=== PATIENT | female | born 1985 | race African-American/Black ===

== ENCOUNTER 2019-05-19 11:00 | Observation (INO) ==
[2019-05-19] MEDS ORDERED: KETOROLAC 30 MG/1 ML VIAL IV STA (12:32)
[2019-05-19 12:42] LABS: Basophils # 0.1 10*3/uL (0.0-0.2); Basophils % 0.3 % (0.0-0.8); Eosinophils # 0.1 10*3/uL (0.0-0.87); Eosinophils % 0.3 % (0.00-10.9); Immature Granulocytes % 1.9 %; Immature Granulocytes Absolute 0.48 #; Lymphocytes # 2.3 10*3/uL (1.4-4.0); Lymphocytes % 9.3 % (21.3-54.2); Mean Corpuscular HGB Conc 33.3 GM/DL (32-36); Mean Corpuscular Volume 90.4 FL (87-102); Mean Platelet Volume 9.9 FL (9.6-12.0); Monocytes % 6.4 % (1.7-12.7); Neutrophils % 81.8 % (38.7-73.9); Platelet Count 293 T/CUMM (130-400); Red Blood Count 3.32 MC/CUMM (3.8-5.5); Red Cell Distribution Width 12.8 % (9.3-17.3); White Blood Count 24.9 T/CUMM (4-12)
[2019-05-19 13:02] LABS: Calcium 8.4 MG/DL (8.5-10.1); Osmolality,Calculated 266.2 MOS/KG (273-304)
[2019-05-19 13:05] LABS: Platelet Estimate Normal
[2019-05-19 13:06] LABS: Ovalocytes Few
[2019-05-19 13:07] LABS: Anisocytosis Slight; Hypochromasia 1+; Microcytosis 1+
[2019-05-19 13:15] LABS: Amorphous Crystals,Urine Occasional /HPF (Few); Apearance,Urine CLOUDY (Clear); Bilirubin,Urine Negative (Negative); Blood, Urine Large mg/dL (Negative); Glucose,Urine (UA) Negative (Negative); Ketones,Urine 5 mg/dL (Negative); Mucus,Urine Few /LPF (Occasional); Nitrite,Urine Negative (Negative); Protein,Urine 100 MG/DL; RBC,Urine 58 /HPF (0-4); Urine Color Yellow (Yellow); Urine Specific Gravity 1.032 (1.001-1.035); Urine Urobilinogen < 2.0 EU/DL (0.2-1.0)
[2019-05-19 13:31] LABS: Lymphocytes 9 % (20-55); Segmented Neutrophils 86 % (50-85); Total Cells Counted 100
[2019-05-19] MEDS ORDERED: PIPERACILLIN/TAZOBACTAM 3,375 MG in SODIUM CHLORIDE 0.9% 100 ML IV STA (13:54)
[2019-05-19] MEDS ORDERED: OXYTOCIN/LR 20 UNIT/1,000 ML BAG IV ONE (14:00)
[2019-05-19] MEDS ORDERED: MAGNESIUM HYDROXIDE SUSP 30 ML UDCUP PO PRN ×2 (14:04→18:53)
[2019-05-19] MEDS ORDERED: ACETAMINOPHEN 325 MG TABLET PO PRN (14:04)
[2019-05-19] MEDS ORDERED: ONDANSETRON 4 MG/2 ML VIAL IV PRN ×2 (14:04→18:53)
[2019-05-19] MEDS ORDERED: IBUPROFEN 800 MG TABLET PO PRN ×2 (14:04→18:53)
[2019-05-19] MEDS ORDERED: INFLUENZA VIRUS VACCINE 0.5 ML SYRINGE IM ONE (15:39)
[2019-05-19] MEDS ORDERED: BENZOCAINE/MENTHOL LOZENGE 18/BOX PO PRN (18:53)
[2019-05-19] MEDS ORDERED: BISACODYL 10 MG SUPP RECTAL PRN (18:53)
[2019-05-19] MEDS ORDERED: DOCUSATE SODIUM 100 MG CAPSULE PO PRN (18:53)
[2019-05-19] MEDS ORDERED: LACTATED RINGERS 1,000 ML IV SCH (19:00)
[2019-05-19] MEDS ORDERED: LIDOCAINE 2% 5 ML VIAL ONE (19:00)
[2019-05-19] MEDS ORDERED: SEVOFLURANE 1 UNIT/15 MINUTE INH ONE (19:00)
[2019-05-19] MEDS ORDERED: propofoL 200 MG/20 ML VIAL IV ONE (19:00)
[2019-05-19] MEDS ORDERED: PHENYLEPHRINE 1 MG/10 ML SYRINGE IV ONE (19:01)
[2019-05-19] MEDS ORDERED: ONDANSETRON 4 MG/2 ML VIAL ONE (19:01)
[2019-05-19] MEDS ORDERED: SODIUM CHLORIDE 0.9% 100 ML IV ONE (19:01)
[2019-05-19] MEDS ORDERED: fentaNYL 100 MCG/2 ML VIAL ONE (19:01)
[2019-05-19] MEDS ORDERED: PHENYLEPHRINE 10 MG/1 ML VIAL IV ONE (19:01)
[2019-05-19] MEDS ORDERED: MIDAZOLAM 2 MG/2 ML VIAL ONE (19:01)
[2019-05-19] MEDS ORDERED: KETOROLAC 30 MG/1 ML VIAL ONE (19:01)
[2019-05-19] MEDS ORDERED: DEXAMETHASONE 4 MG/1 ML VIAL ONE (19:01)
[2019-05-19] MEDS: oxyCODONE/ACETAMINOPHEN 5-325 MG TABLET PO PRN (20:34)
[2019-05-19] MEDS: ACETAMINOPHEN 325 MG TABLET PO PRN (20:34)
[2019-05-19] MEDS ORDERED: ceFAZolin 1,000 MG in SYRINGE 1 EACH IV SCH (23:00)
[2019-05-20] MEDS ORDERED: IBUPROFEN 800 MG TABLET PO PRN
[2019-05-20] MEDS: ceFAZolin 1,000 MG in SYRINGE 1 EACH IV SCH ×5 (00:06→23:34)
[2019-05-20] MEDS: oxyCODONE/ACETAMINOPHEN 5-325 MG TABLET PO PRN ×3 (00:36→14:39)
[2019-05-20] MEDS: ACETAMINOPHEN 325 MG TABLET PO PRN ×2 (00:36→04:40)
[2019-05-20] MEDS ORDERED: ceFAZolin 1,000 MG in SYRINGE 1 EACH IV SCH (00:53)
[2019-05-20] MEDS ORDERED: diphenhydrAMINE CAP 25 MG CAPSULE PO PRN (03:45)
[2019-05-20 05:01] LABS: Basophils # 0.1 10*3/uL (0.0-0.2); Basophils % 0.3 % (0.0-0.8); Hematocrit 26.1 VOL% (35.7-47.0); Hemoglobin 8.8 GM/DL (12.0-16.0); Immature Granulocytes % 2.6 %; Immature Granulocytes Absolute 0.61 #; Lymphocytes # 2.3 10*3/uL (1.4-4.0); Lymphocytes % 9.8 % (21.3-54.2); Mean Corpuscular HGB Conc 33.7 GM/DL (32-36); Mean Platelet Volume 9.9 FL (9.6-12.0); Monocytes % 2.4 % (1.7-12.7); Neutrophils % 84.9 % (38.7-73.9); Platelet Count 281 T/CUMM (130-400); Red Cell Distribution Width 12.6 % (9.3-17.3); White Blood Count 23.3 T/CUMM (4-12)
[2019-05-20 05:30] LABS: Band Neutrophils 4 % (0-10); Hypochromasia 1+; Lymphocytes 8 % (20-55); Microcytosis Slight; Myelocytes 1 %; Ovalocytes Slight; Segmented Neutrophils 83 % (50-85); Total Cells Counted 100
[2019-05-20 05:31] LABS: Platelet Estimate Normal; Polychromasia Slight
[2019-05-20] MEDS: FERROUS SULFATE 325 MG TABLET PO SCH (08:26)
[2019-05-20] MEDS ORDERED: ACETAMINOPHEN 500 MG TABLET PO PRN (20:06)
[2019-05-21 05:55] LABS: Basophils # 0.1 10*3/uL (0.0-0.2); Basophils % 0.5 % (0.0-0.8); Eosinophils # 0.2 10*3/uL (0.0-0.87); Eosinophils % 1.1 % (0.00-10.9); Hematocrit 24.3 VOL% (35.7-47.0); Hemoglobin 8.1 GM/DL (12.0-16.0); Immature Granulocytes % 5.1 %; Immature Granulocytes Absolute 0.78 #; Lymphocytes % 32.6 % (21.3-54.2); Mean Corpuscular HGB Conc 33.3 GM/DL (32-36); Mean Corpuscular Volume 91.4 FL (87-102); Mean Platelet Volume 10.1 FL (9.6-12.0); Monocytes % 7.5 % (1.7-12.7); NRBC # 0.03 10*3/uL; Neutrophils % 53.2 % (38.7-73.9); Platelet Count 325 T/CUMM (130-400); Red Blood Count 2.66 MC/CUMM (3.8-5.5); Red Cell Distribution Width 13.1 % (9.3-17.3); White Blood Count 15.4 T/CUMM (4-12)
[2019-05-21 06:17] LABS: Band Neutrophils 3 % (0-10); Hypochromasia 1+; Lymphocytes 30 % (20-55); Microcytosis Slight; Ovalocytes Slight; Platelet Estimate Adequate; Segmented Neutrophils 66 % (50-85); Total Cells Counted 100
[2019-05-21 07:12] VITALS: BP 107/60
[2019-05-21] MEDS: ceFAZolin 1,000 MG in SYRINGE 1 EACH IV SCH (09:25)
[2019-05-21] MEDS: FERROUS SULFATE 325 MG TABLET PO SCH (09:52)
== END 2019-05-21 11:15 | disposition home or self-care (01) ==
LOC: N.ED 11:00 → N.EDINP 11:00 → N.OB 15:02
PROVIDERS: ADMIT Obstetrics & Gynecology; ATTEND Obstetrics & Gynecology

== ENCOUNTER 2020-06-14 05:40 | Inpatient (IN) ==
[2020-06-14] MEDS ORDERED: MEPERIDINE 50 MG/1 ML VIAL IV PRN (05:53)
[2020-06-14] MEDS ORDERED: ACETAMINOPHEN 325 MG TABLET PO PRN (05:53)
[2020-06-14] MEDS ORDERED: ONDANSETRON 4 MG/2 ML VIAL IV PRN ×2 (05:53→14:02)
[2020-06-14] MEDS ORDERED: LACTATED RINGERS 500 ML IV PRN (05:53)
[2020-06-14] MEDS ORDERED: BUTORPHANOL 2 MG/ML VIAL IV PRN (05:53)
[2020-06-14] MEDS ORDERED: LACTATED RINGERS 1,000 ML IV SCH ×3 (06:00→14:30)
[2020-06-14] MEDS ORDERED: OXYTOCIN/LR 20 UNIT/1,000 ML BAG IV SCH (06:00)
[2020-06-14 06:37] LABS: Basophils # 0.1 10*3/uL (0.0-0.2); Basophils % 0.5 % (0.0-0.8); Eosinophils % 0.2 % (0.00-10.9); Hematocrit 36.3 VOL% (35.7-47.0); Hemoglobin 12.1 GM/DL (12.0-16.0); Immature Granulocytes % 0.5 %; Immature Granulocytes Absolute 0.06 #; Lymphocytes # 2.5 10*3/uL (1.4-4.0); Lymphocytes % 19.4 % (21.3-54.2); Mean Corpuscular HGB Conc 33.3 GM/DL (32-36); Mean Corpuscular Volume 86.4 FL (87-102); Mean Platelet Volume 10.2 FL (9.6-12.0); Monocytes % 6.8 % (1.7-12.7); Neutrophils % 72.6 % (38.7-73.9); Platelet Count 384 T/CUMM (130-400); Red Cell Distribution Width 15.5 % (9.3-17.3)
[2020-06-14] MEDS ORDERED: AMPICILLIN INJ 2,000 MG in SODIUM CHLORIDE 0.9% 100 ML IV ONE (06:52)
[2020-06-14 06:57] LABS: Albumin 2.5 G/DL (3.4-5.0); Bilirubin,Total 0.5 MG/DL (0.2-1.0); Calcium 8.7 MG/DL (8.5-10.1); Osmolality,Calculated 264.4 MOS/KG (273-304); Potassium 3.8 MMOL/L (3.5-5.1); Total Protein 7.7 G/DL (6.4-8.3)
[2020-06-14] MEDS ORDERED: CITRIC ACID/SODIUM CITRATE 30 ML UDCUP PO ONE (07:08)
[2020-06-14] MEDS ORDERED: PROMETHAZINE 25 MG/1 ML VIAL IM ONE (07:08)
[2020-06-14] MEDS ORDERED: ePHEDrine 50 MG/ML VIAL IV PRN (07:08)
[2020-06-14] MEDS ORDERED: diphenhydrAMINE 50 MG/1 ML VIAL IV PRN ×2 (07:08)
[2020-06-14] MEDS ORDERED: hydrOXYzine HCL 25 MG/1 ML VIAL IM PRN (07:08)
[2020-06-14] MEDS ORDERED: LACTATED RINGERS 1,000 ML IV ONE (07:08)
[2020-06-14] MEDS ORDERED: FAMOTIDINE 20 MG/2 ML VIAL IV ONE (07:08)
[2020-06-14] MEDS ORDERED: NALOXONE 0.4 MG/ML VIAL IV PRN (07:08)
[2020-06-14] MEDS ORDERED: fentaNYL 2 MCG/ROPIV 0.2% EPID 100 ML EPIDURAL SCH (07:30)
[2020-06-14 08:52] LABS: Bilirubin,Urine Negative (Negative); Blood, Urine Negative (Negative); Glucose,Urine (UA) Negative (Negative); Ketones,Urine 5 mg/dL (Negative); Mucus,Urine Occasional /LPF (Occasional); Nitrite,Urine Negative (Negative); Protein,Urine 30 MG/DL; RBC,Urine 1 /HPF (0-4); Squamous Epithelial Cell,Urine Occasional /HPF (0-10); Urine Appearance CLEAR (Clear); Urine Color Yellow (Yellow); Urine Specific Gravity 1.021 (1.001-1.035); Urine Urobilinogen < 2.0 EU/DL (0.2-1.0); WBC,Urine 1 /HPF (0-6)
[2020-06-14 09:03] LABS: Barbiturates Screen,Urine Negative (Negative); Benzodiazepines Screen,Urine Negative (Negative); Cannabinoid Screen,Urine Positive (Negative); Opiate Screen,Urine Negative (Negative); Phencyclidine Screen,Urine Negative (Negative)
[2020-06-14] MEDS ORDERED: AMPICILLIN INJ 1,000 MG in SODIUM CHLORIDE 0.9% 100 ML IV SCH (11:00)
[2020-06-14 13:20] LABS: Cord Arterial Blood HCO3 17.3 MMOL/L
[2020-06-14 13:25] LABS: Cord Venous Blood PCO2 53.2 MMHG; Cord Venous Blood PO2 18.5
[2020-06-14] MEDS ORDERED: MAGNESIUM HYDROXIDE SUSP 30 ML UDCUP PO PRN (14:02)
[2020-06-14] MEDS ORDERED: BISACODYL 10 MG SUPP RECTAL PRN (14:02)
[2020-06-14] MEDS ORDERED: ACETAMINOPHEN 500 MG TABLET PO PRN (15:00)
[2020-06-14] MEDS: cefOXitin 2,000 MG in SYRINGE 1 EACH IV SCH ×2 (15:06→21:30)
[2020-06-14] MEDS: IBUPROFEN 800 MG TABLET PO PRN (19:11)
[2020-06-14] MEDS ORDERED: OXYTOCIN/LR 20 UNIT/1,000 ML BAG IV ONE (20:59)
[2020-06-14] MEDS: DOCUSATE SODIUM 100 MG CAPSULE PO SCH (21:30)
[2020-06-14 21:54] LABS: Hematocrit 25.2 VOL% (35.7-47.0); Hemoglobin 8.1 GM/DL (12.0-16.0)
[2020-06-14] MEDS ORDERED: METHYLERGONOVINE 0.2 MG/1 ML AMP IM ONE (22:23)
[2020-06-14] MEDS ORDERED: miSOPROStoL 200 MCG TABLET VAG ONE (22:24)
[2020-06-14] MEDS ORDERED: METHYLERGONOVINE 0.2 MG/1 ML AMP ONE (22:25)
[2020-06-15] MEDS: cefOXitin 2,000 MG in SYRINGE 1 EACH IV SCH ×4 (03:08→22:34)
[2020-06-15] MEDS: IBUPROFEN 800 MG TABLET PO PRN ×2 (03:21→21:20)
[2020-06-15 07:26] LABS: Basophils # 0.1 10*3/uL (0.0-0.2); Basophils % 0.3 % (0.0-0.8); Eosinophils # 0.1 10*3/uL (0.0-0.87); Eosinophils % 0.4 % (0.00-10.9); Hematocrit 21.4 VOL% (35.7-47.0); Hemoglobin 7.1 GM/DL (12.0-16.0); Immature Granulocytes % 0.5 %; Immature Granulocytes Absolute 0.11 #; Lymphocytes # 3.2 10*3/uL (1.4-4.0); Lymphocytes % 14.7 % (21.3-54.2); Mean Corpuscular HGB Conc 33.2 GM/DL (32-36); Mean Corpuscular Volume 86.6 FL (87-102); Mean Platelet Volume 9.9 FL (9.6-12.0); Neutrophils % 76.1 % (38.7-73.9); Platelet Count 229 T/CUMM (130-400); Red Blood Count 2.47 MC/CUMM (3.8-5.5); Red Cell Distribution Width 15.7 % (9.3-17.3); White Blood Count 21.6 T/CUMM (4-12)
[2020-06-15 08:05] LABS: Anisocytosis 2+; Band Neutrophils 6 % (0-10); Eosinophils 2 % (0-10); Lymphocytes 18 % (20-55); Ovalocytes Few; Platelet Estimate Normal; Segmented Neutrophils 71 % (50-85); Total Cells Counted 100
[2020-06-15 08:06] LABS: Polychromasia Slight
[2020-06-15 08:08] LABS: Target Cells 1+
[2020-06-15] MEDS: DOCUSATE SODIUM 100 MG CAPSULE PO SCH ×2 (09:09→21:20)
[2020-06-15] MEDS: IRON (CARBONYL)/VIT C/B12/FA TABLET PO SCH (14:26)
[2020-06-16] MEDS: IRON (CARBONYL)/VIT C/B12/FA TABLET PO SCH (08:48)
[2020-06-16] MEDS: DOCUSATE SODIUM 100 MG CAPSULE PO SCH (08:48)
[2020-06-16 11:18] VITALS: BP 129/78
== END 2020-06-16 15:40 | disposition home or self-care (01) | DRG 541 ==
LOC: N.LD 05:40 → N.OB 16:11
PROVIDERS: ADMIT Obstetrics & Gynecology; ATTEND Obstetrics & Gynecology